=== PATIENT | female | born 1940 | race Caucasian/White ===

== ENCOUNTER 2017-09-09 12:03 | Inpatient (IN) | payer OTHER, BC ==
[~2017-09-09] VITALS: Ht 149.9 cm; Wt 90.6 kg
--- NOTE | ~2017-09-09 | HC ---
[facility] [place] [address] CONSULTATION Name: VERONICA HUYNH Room #: 515-P [facility] IN M.R.#: [id number] Admission: 09/09/17 Attend Phys: Duran Villanueva MD Discharge: Date of : 40 Report #: [id number] THIS REPORT FOR: //name// CC: Duran Martinez DATE OF SERVICE: 09/14/2017 HISTORY OF PRESENT ILLNESS: This is a 77-year-old female patient who was evaluated by me for the possibility of seizure. The patient is a poor historian. I reviewed the record, but she indicates that she had these episodes of syncope for a long period of time. She has a significant cardiac problem. This spelled a short-lived to come spontaneously and then becomes better within a few minutes. There has been some rolling of the eyes. When it happened, she was upright. REVIEW OF SYSTEMS: Very extensive in this patient. She has a history of shortness of breath. She has a history of pulmonary edema and ischemic cardiomyopathy. She has a significant coronary artery disease. She has renal insufficiency. She also had eye problems. This was her relevant 14-point review of system. PAST MEDICAL HISTORY: Positive for the syncope. FAMILY HISTORY: Positive for heart disease. SOCIAL HISTORY: She has a pretty supportive family, but they were not here. PHYSICAL EXAMINATION: The patient's examinations indicate that she is alert. She is responsive. She follows simple commands. Her speech is sometimes difficult to understand, but she said that is her baseline. She can tell me what month it is, but her memory and fund of knowledge is poor in general. Cranial nerve examination 2-12 looks mostly unremarkable. She moves all 4 extremities. There is no cerebellar sign. I could not look at the fundus. She is moderately built individual who does not have any dysmorphic features of eyes, ears and face. Her hearing looks adequate. Vision does look poor. Pulses are difficult to feel. She has no edema, cyanosis or jaundice. She has multiple cardiac problems. She has rhonchi on both sides. Blood pressure is 121/57, respiration is 12, pulse is 63, temperature is 97.8. She did not have any imaging study of the brain. IMPRESSION: This episode was most likely non-neurological. I do not believe that she had any seizure, but she has such an extensive disease that it will be desirable to make sure there is no neurological etiology for that. I will suggest an MRI and a carotid Doppler to complete the workup. She tells me, there is no contraindication for MRI. If confirmed with the family, we will [address] [address] CONSULTATION Name: VERONICA HUYNH Room #: 515-P [facility] IN M.R.#: [id number] Admission: 09/09/17 Attend Phys: Duran Villanueva MD Discharge: Date of : 40 Report #: [id number] schedule that. RECOMMENDATIONS: I will look at this MRI and until that shows some abnormality, we should concentrate on looking for any non-neurological cause for the patient's symptoms. Thank you very much for this referral and I discussed all of it with the patient and the family and she wants to follow this plan. <ELECTRONICALLY SIGNED> By: Jamil Diane MD 09/20/17 1347 1226 0246 Jamil Diane MD /nt
--- NOTE | ~2017-09-09 | HC ---
[facility] [place] [address] CONSULTATION Name: VERONICA HUYNH Room #: 515-P [facility] IN ..#: [id number] Admission: 09/09/17 Attend Phys: Duran Villanueva MD Discharge: 09/21/17 Date of : 40 Report #: [id number] THIS REPORT FOR: //name// CC: Duran Villanueva Kenya Clintonmary DATE OF SERVICE: 09/17/2017 ATTENDING PHYSICIAN: Duran Villanueva M.D. CUTTING AND CREASING PRESS OPERATOR: Sandor Murillo, PhD CLINICAL PRESENTATION: The patient is a 77-year-old female admitted to the [facility] rehabilitation unit for a comprehensive inpatient rehabilitation program to improve functional mobility and activities of daily living and self-care secondary to impairment from medical complexity and generalized debility. She had a non-ST elevated myocardial infarction. Her diagnostic assessment on admission also includes acute coronary syndrome, status post drug-eluting stent to the left circumflex with plan to continue aspirin and Plavix for at least 6 months, acute systolic congestive heart failure, cardiogenic pulmonary edema, ischemic cardiomyopathy, acute renal insufficiency superimposed on chronic kidney disease, triopathy, retinopathy with decreased vision, diabetic peripheral neuropathy, exogenous obesity and diabetes mellitus. A complete description of her medical condition and history can be found in her medical record. Neuropsychological consultation was requested to provide assistance in the assessment of cognitive and emotional status and to provide recommendations and services. Prior to this most recent event, she was living with the help of her daughter and granddaughter in her home. The patient had 3 children. One child about 3 weeks ago. The patient indicates continued to have feelings of depression regarding the loss of her child. 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 TECHNIQUES UTILIZED: Clinical interview, review of medical records, staff consultation and behavioral observation, mini mental status exam 2 standard version, and calibrated ideational fluency assessment (category fluency) and a brief abstract reasoning test. EXAMINATION FINDINGS: The patient was alert and cooperative with the assessment. However, her eyes remained closed throughout the evaluation. The patient does report having had macular degeneration and severe visual deficits. She reports subjective feelings of anxiety and depression. Appetite is poor. She also acknowledges difficulty with word finding. Although her eyes were closed, she was alert and cooperative with the assessment. Depression over the [facility] [address] [place] [address] CONSULTATION Name: VERONICA HUYNH Room #: 515-P [facility] IN [facility].#: [id number] Admission: 09/09/17 Attend Phys: Duran Villanueva MD Discharge: 09/21/17 Date of : 40 Report #: [id number] loss of her daughter is also reported. Her performance on the MMSE 2 brief version is within normal limits with a raw score of 14-16. She was 3/3 for initial registration, 5/5 for orientation to time and 5/[address] She was 1/3 correct for 3 items after a brief time delay and distraction. Performance on the brief abstract reasoning test was a score of 3/8 which suggests moderate to severe deficits. Category fluency was at the 8th percentile with a T score of 36 and percentile rank of 8. The MMSE 2 brief version was within normal limits with a raw score of 14-16. The patient was 1/3 for immediate recall of 3 items after a brief time delay and distraction. 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 Adjustment disorder with anxiety and depressed mood. RECOMMENDATIONS: Treatment program for depression is indicated that includes the use of antidepressant medication. Verbal praise and complements along with specific instructions will also help in general participation. Strategies to assist in compensation for visually mediated deficits are needed. Her discharge destination will be more effective in degree of similarity to prior living arrangement. Thank you very much for allowing me to provide the consultation on this patient. <ELECTRONICALLY SIGNED> By: Sandor Murillo, PhD 09/23/17 1345 1504 2245 Sandor Murillo, PhD /nt
--- NOTE | ~2017-09-09 | H ---
[facility] [place] [address] HISTORY AND PHYSICAL Name: VERONICA HUYNH Room #: 515-P ADM IN M.R.#: [id number] Admission: 09/09/17 Attend Phys: Duran Villanueva MD Discharge: Date of : 40 Report #: [id number] THIS REPORT FOR: //name// CC: Duran Martinez DATE OF SERVICE: 09/09/2017 HISTORY OF PRESENT ILLNESS: The patient is a 77-year-old female who was originally admitted to [facility] with shortness of breath. She underwent diagnostic evaluation and was noted to have an acute coronary syndrome and ruled in for a non-ST elevation HI. She was diagnosed with cardiogenic pulmonary edema. She was noted to have ischemic cardiomyopathy, acute systolic congestive heart failure. She underwent cardiac catheterization showing diffuse distal disease, LAD and PDA. She underwent stenting of the left circumflex with a plan to continue aspirin and Plavix for at least 6 months. She was monitored regarding her renal insufficiency. She was noted to have generalized weakness and debilitation and has been admitted for acute in-hospital inpatient rehabilitation. PAST MEDICAL HISTORY: Includes COPD, diabetes mellitus, hypertension, hyperlipidemia, obesity. 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 ALLERGIES: LISINOPRIL. FAMILY HISTORY: Heart disease, COPD, diabetes mellitus and hypertension. MEDICATIONS: Please see the full medication listing. Each of these was individually reconciled and includes vitamins herbals and supplements. SOCIAL HISTORY: Lives in a house with her daughter and granddaughter. She is rarely alone for more than 30 minutes at a time per history. She utilized a walking stick with her visual difficulties and also had a walker that she use. Daughter is noted to be durable power of employee benefits attorney in the family or bath need assistance with bathing three times per week. REVIEW OF SYSTEMS: No current complaints of chest pain, shortness of breath or abdominal discomfort. PHYSICAL EXAMINATION: GENERAL: A 77-year-old obese female in no obvious distress. The patient is pleasant, alert, appears to be a reasonable historian. She was following basic 1 step commands. VITAL SIGNS: Temperature 36.8, pulse 60, respirations 20, blood pressure 108/52. [address] [address] HISTORY AND PHYSICAL Name: VERONICA HUYNH Room #: 515-P [facility] IN ..#: [id number] Admission: 09/09/17 Attend Phys: Duran Villanueva MD Discharge: Date of : 40 Report #: [id number] HEENT: Appeared to be benign. CHEST: Sounded clear to auscultation. CARDIAC: Regular rate and rhythm. ABDOMEN: Obese, bowel sounds positive, nontender. EXTREMITIES: Functional range of motion of both upper extremities with strength grade 4-/5. She has the significant decreased vision as noted. In the lower extremities, she has decreased distal sensation and a stocking distribution with strength grade 3+ to 4-/5. DTRs are trace to 1. She is needing assistance with basic functional mobility, short distances for walker ambulation. She has been max assist to ambulate 20 feet with transfers, mod assist. Lower body dressing has been max assist prior to admission. ASSESSMENT: A 77-year-old female with the following problem list: 1. Medical complexity with generalized debilitation. 2. Non-ST elevation myocardial infarction. 3. Acute coronary syndrome, now status post drug-eluting stent to the left circumflex with plan to continue aspirin and Plavix for at least 6 months. 4. Acute systolic congestive heart failure. 5. Cardiogenic pulmonary edema. 6. Ischemic cardiomyopathy. 7. Acute renal insufficiency superimposed on chronic kidney disease. 8. Triopathy. 9. Retinopathy with decreased vision. 10. Diabetic peripheral neuropathy. 11. Exogenous obesity. 12. Obesity. 13. Diabetes mellitus. PLAN: The patient is admitted for acute in-hospital inpatient rehabilitation. From a postadmission physician evaluation perspective, there are no relevant changes since the preadmission screening. Please see the above review of prior and current medical and functional conditions and comorbidities. Please see the patient's previous and current functional status. As far as risk of complication, she does have multiple medical comorbidities as noted above. Initial plan of care involves the interdisciplinary acute inpatient rehabilitation program with goal of maximizing the patient's functional independence, so she can hopefully return back to her prior living situation. Measurable functional goals would be for her to improve to the point where she can be using her walking stick or her walker as she was doing before and able to do most of her basic ADLs. Prognosis is reasonably good with estimated length of stay probably at least 5-7 days and likely longer if needed. Potential barriers would include her multiple medical comorbidities and decreased functional status. The patient meets diagnostic criteria for an acute in-hospital inpatient rehabilitation stay. She meets medical necessity criteria with the multiple medical comorbidities as noted above. We will have the [facility] [address] [place] [address] HISTORY AND PHYSICAL Name: VERONICA HUYNH Room #: 515-P ADM IN M.R.#: [id number] Admission: 09/09/17 Attend Phys: Duran Villanueva MD Discharge: Date of : 40 Report #: [id number] client support consultant physicians continue to follow while she is on the rehab carter. She does have the tolerance for an acute rehab stay and has appropriate discharge goals back to the home setting. <ELECTRONICALLY SIGNED> By: Duran Villanueva MD 09/12/17 1414 1453 1514 Duran Villanueva MD /[facility]
--- NOTE | ~2017-09-09 | EEG ---
[facility] [place] [address] ELECTROENCEPHALOGRAM Name: VERONICA HUYNH Room #: 515-P ADM IN M.R.#: [id number] Admission: 09/09/17 Attend Phys: Duran Villanueva MD Discharge: Date of : 40 Report #: [id number] THIS REPORT FOR: //name// CC: Duran Martinez DATE OF SERVICE: 09/12/2017 INDICATIONS: This patient is being evaluated for an episode of syncope. EEG is being done to further evaluate that. DESCRIPTION: EEG was done by placing the electrodes by standard 10-20 system of electrode placement. Both referential and sequential montages were used for recording. Background activity in this patient's EEG is about 9 Hz and 30 microvolts. It is a symmetrical activity. The patient went to sleep that is associated with bilaterally symmetrical sleep spindle and vertex sharp waves. Photic stimulation is unremarkable. Throughout the record, no active epileptiform activity was noticed. IMPRESSION: This patient's EEG is intermixed with some theta range slowing. Otherwise, it does not demonstrate any active epileptiform activity. Thank you very much for this referral. <ELECTRONICALLY SIGNED> By: Jamil Diane MD 09/20/17 1349 1722 1734 Jamil Diane MD /nt
--- NOTE | ~2017-09-09 | PLAN ---
[facility] [place] [address] REHAB UNIT PLAN OF CARE Name: VERONICA HUYNH Room #: 515-P ADM IN .R.#: [id number] Admission: 09/09/17 Attend Phys: Duran Villanueva MD Discharge: Date of : 40 Report #: [id number] THIS REPORT FOR: //name// CC: Duran Martinez DATE OF SERVICE: 09/11/2017 The patient is seen back today in followup. She is in no distress. Last recorded temperature is 97.7, pulse 58, respirations 20, blood pressure 122/53. The patient is alert. Transfers are mod assist. Gait 20 feet front-wheeled walker, min assist. Occupational therapy, lower body dressing is max assist. In speech therapy, the patient has mild to moderate comprehensive deficits. ASSESSMENT: 1. Medical complex with generalized debilitation. 2. Non-ST elevation myocardial infarction. 3. Acute coronary syndrome, status post drug-eluting stent to the left circumflex with plan to continue aspirin and Plavix. 4. Acute systolic congestive heart failure. 5. Cardiogenic pulmonary edema. 6. Ischemic cardiomyopathy. 7. Acute renal insufficiency superimposed on chronic kidney disease. 8. Triopathy 9. Retinopathy with decreased vision. 10. Diabetic peripheral neuropathy. 11. Exogenous obesity. 12. Diabetes mellitus. PLAN: The overall plan of care is based on the preadmission screen, post-admission physician evaluation and information garnered from therapy assessments. 1. Estimated length of stay is probably at least a week, likely longer as warranted. 2. Medical prognosis is reasonably good. 3. Anticipated interventions includes the interdisciplinary acute inpatient rehabilitation program with the goal of maximizing her functional independence, so the patient returns back to her home setting. We will have the interdisciplinary acute rehab team involved. PT, OT, speech rehab nursing assisting regarding medication management, skin care prophylaxis, bowel and bladder issues and nursing education. The vocational rehab consultant physicians will continue to follow. 4. Anticipated functional outcomes would be for the patient to achieve a status where she is up with her walking stick or using her walker for mobility, ADLs as before. 5. Discharge destination is back home with daughter and granddaughter. [address] [address] REHAB UNIT PLAN OF CARE Name: VERONICA HUYNH Room #: 515-P ADM IN .R.#: [id number] Admission: 09/09/17 Attend Phys: Duran Villanueva MD Discharge: Date of : 40 Report #: [id number] 6. Expected therapy by discipline includes PT, OT and speech 1 hour per day each five days a week throughout the duration of the acute inpatient rehabilitation stay. We may be able to taper off that speech therapy in favor of more PT and OT depending upon how she does. <ELECTRONICALLY SIGNED> By: Duran Villanueva MD 09/12/17 1414 0915 2333 Duran Villanueva MD /PMT
[2017-09-09 12:00] VITALS: BP 108/52
[~2017-09-09 12:03] MED LIST: ACETAMINOPHEN325 M1 PO; ADVAIR HFA 230M12 GM INH; ALPHAGAN P15 ML OPHTHALMIC; ASPIRIN325 PO; ATORVASTATIN CA40 MG PO; ATROVENT HFA14 GM INH; CARVEDILOL3.125 MG PO; CEFUROXIME250 MG PO; CLOPIDOGREL75 MG PO; COSOPT OCUMETER10 M1 OPHTHALMIC; HUMALOG KW200 UNIT/1 SUBQ; HUMALOG100 UNIT/1 SUBQ; LANTUS SOL100 UNIT/1 SUBQ; MUCINEX600 MG PO; NEURONTIN 300300 M1 PO; PREVACID30 MG PO; SYMBICORT160 MCG/4. INH; VENTOLIN HFA 1818 GM INH
[2017-09-10 06:51] LABS: ALBUMIN 2.2 g/dL (3.4-5.0); CALCIUM 8.4 mg/dL (8.5-10.1); CREATININE 1.4 mg/dL (0.6-1.0); PHOSPHORUS 3.7 mg/dL (2.5-4.9); POTASSIUM 4.3 mmol/L (3.5-5.1)
[2017-09-10 08:30] VITALS: BP 125/53
[2017-09-10 20:00] VITALS: BP 122/53
[2017-09-11 03:58] LABS: HEMATOCRIT 29.8 % (37.0-47.0); HEMOGLOBIN 9.4 gm/dL (12.0-15.0); MCH 26.7 pg (26.0-34.0); MCHC 31.7 g/dL (28.0-37.0); MCV 84.2 fL (80.0-100.0); RBC 3.53 mil/uL (4.20-5.00); RDW 15.7 % (10.5-14.5)
[2017-09-11 04:11] LABS: ALBUMIN 2.2 g/dL (3.4-5.0); CALCIUM 8.2 mg/dL (8.5-10.1); CREATININE 1.2 mg/dL (0.6-1.0); POTASSIUM 4.5 mmol/L (3.5-5.1)
[2017-09-11 13:45] LABS: % SATURATION 13 % (20-39); IRON 33 ug/dL (50-170); TIBC 252 ug/dL (250-450); UIBC 219 ug/dL
[2017-09-11 14:26] LABS: FERRITIN 112 ng/mL (8-252)
[2017-09-11 15:19] VITALS: BP 137/63
[2017-09-12 07:16] VITALS: BP 138/54
[2017-09-12 07:18] LABS: ALBUMIN 2.3 g/dL (3.4-5.0); CREATININE 1.2 mg/dL (0.6-1.0); PHOSPHORUS 3.6 mg/dL (2.5-4.9); POTASSIUM 4.6 mmol/L (3.5-5.1)
[2017-09-12 19:53] VITALS: BP 117/56
[2017-09-13 07:55] VITALS: BP 136/65
[2017-09-13 08:00] VITALS: BP 136/65
[2017-09-13 20:12] VITALS: BP 133/61
[2017-09-14 06:14] LABS: ABSOLUTE NEUTROPHILS 5.7 thou/uL (1.4-8.2); BASOPHILS 0.7 % (0.0-2.0); EOSINOPHILS 3.8 % (0.0-3.0); HEMATOCRIT 28.5 % (37.0-47.0); HEMOGLOBIN 9.2 gm/dL (12.0-15.0); LYMPHOCYTES 20.4 % (24.0-44.0); MANUAL DIFF NO; MCH 27.5 pg (26.0-34.0); MCHC 32.4 g/dL (28.0-37.0); MCV 84.9 fL (80.0-100.0); MONOCYTES 7.2 % (1.0-8.0); PLATELET COUNT 184 thou/uL (150-400); POLYS 67.9 % (36.0-66.0); RBC 3.35 mil/uL (4.20-5.00); RDW 15.7 % (10.5-14.5); WBC 8.4 thou/uL (4.0-11.0)
[2017-09-14 06:32] LABS: ALBUMIN 2.4 g/dL (3.4-5.0); CALCIUM 8.1 mg/dL (8.5-10.1); CREATININE 1.3 mg/dL (0.6-1.0); MAGNESIUM 2.1 mg/dL (1.8-2.4); PHOSPHORUS 3.5 mg/dL (2.5-4.9); POTASSIUM 4.6 mmol/L (3.5-5.1)
[2017-09-14 08:06] VITALS: BP 121/57
[2017-09-14 20:34] VITALS: BP 127/49
[2017-09-15 07:36] VITALS: BP 105/50
[2017-09-15 09:07] LABS: HEMATOCRIT 29.4 % (37.0-47.0); HEMOGLOBIN 9.5 gm/dL (12.0-15.0); MCH 27.2 pg (26.0-34.0); MCHC 32.3 g/dL (28.0-37.0); MCV 83.9 fL (80.0-100.0); RBC 3.5 mil/uL (4.20-5.00); RDW 15.6 % (10.5-14.5); WBC 11.4 thou/uL (4.0-11.0)
[2017-09-15 09:22] LABS: CALCIUM 8.4 mg/dL (8.5-10.1); CREATININE 1.3 mg/dL (0.6-1.0); MAGNESIUM 2.4 mg/dL (1.8-2.4); POTASSIUM 5.3 mmol/L (3.5-5.1)
[2017-09-15 20:40] VITALS: BP 115/53
[2017-09-16 08:24] VITALS: BP 99/44
[2017-09-16 14:11] LABS: HEMATOCRIT 28.7 % (37.0-47.0); HEMOGLOBIN 9.2 gm/dL (12.0-15.0); MCHC 32.2 g/dL (28.0-37.0); MCV 83.7 fL (80.0-100.0); RBC 3.42 mil/uL (4.20-5.00); RDW 15.7 % (10.5-14.5); WBC 11.4 thou/uL (4.0-11.0)
[2017-09-16 14:24] LABS: ALBUMIN 2.5 g/dL (3.4-5.0); CALCIUM 8.4 mg/dL (8.5-10.1); CREATININE 1.5 mg/dL (0.6-1.0); MAGNESIUM 2.4 mg/dL (1.8-2.4); POTASSIUM 5.4 mmol/L (3.5-5.1); TOTAL BILIRUBIN 0.4 mg/dL (<0.1-1.0); TOTAL PROTEIN 6.6 g/dL (6.4-8.2)
[2017-09-16 20:12] VITALS: BP 131/53
[2017-09-17 06:54] LABS: ALBUMIN 2.4 g/dL (3.4-5.0); CALCIUM 8.3 mg/dL (8.5-10.1); CREATININE 1.7 mg/dL (0.6-1.0); POTASSIUM 5.4 mmol/L (3.5-5.1)
[2017-09-17 08:00] VITALS: BP 124/48
[2017-09-17 20:04] VITALS: BP 115/45
[2017-09-18 05:34] LABS: ALBUMIN 2.2 g/dL (3.4-5.0); CALCIUM 8.3 mg/dL (8.5-10.1); CREATININE 1.6 mg/dL (0.6-1.0); PHOSPHORUS 4.3 mg/dL (2.5-4.9); POTASSIUM 4.9 mmol/L (3.5-5.1)
[2017-09-18 08:45] VITALS: BP 132/45
[2017-09-18 21:30] VITALS: BP 114/44
[2017-09-19 08:23] VITALS: BP 99/41
[2017-09-19 20:05] VITALS: BP 127/43
[2017-09-20 07:07] LABS: ALBUMIN 2.3 g/dL (3.4-5.0); CALCIUM 8.5 mg/dL (8.5-10.1); CREATININE 1.2 mg/dL (0.6-1.0); MAGNESIUM 2.3 mg/dL (1.8-2.4); PHOSPHORUS 4.7 mg/dL (2.5-4.9); POTASSIUM 4.4 mmol/L (3.5-5.1)
[2017-09-20 07:37] LABS: ABSOLUTE NEUTROPHILS 3.5 thou/uL (1.4-8.2); BASOPHILS 0.7 % (0.0-2.0); EOSINOPHILS 6.8 % (0.0-3.0); HEMATOCRIT 23.7 % (37.0-47.0); HEMOGLOBIN 7.7 gm/dL (12.0-15.0); LYMPHOCYTES 14.5 % (24.0-44.0); MCH 27.5 pg (26.0-34.0); MCHC 32.3 g/dL (28.0-37.0); MCV 85.3 fL (80.0-100.0); MONOCYTES 8.8 % (1.0-8.0); PLATELET COUNT 116 thou/uL (150-400); POLYS 69.2 % (36.0-66.0); RBC 2.78 mil/uL (4.20-5.00); RDW 15.8 % (10.5-14.5); WBC 5.1 thou/uL (4.0-11.0)
[2017-09-20 07:39] LABS: MANUAL DIFF NO
[2017-09-20 07:46] VITALS: BP 99/40
[2017-09-20 20:05] VITALS: BP 127/50
[2017-09-21 08:10] VITALS: BP 108/46
[2017-09-21] MEDS ORDERED: MUCINEX600 MG PO (08:17)
[2017-09-21] MEDS ORDERED: VITAMIN D1000 UNI1 PO (08:17)
[2017-09-21] MEDS ORDERED: HUMALOG100 UNIT/1 SUBQ (08:17)
[2017-09-21] MEDS ORDERED: ATORVASTATIN CA40 MG PO (08:17)
[2017-09-21] MEDS ORDERED: SYMBICORT160 MCG/4. INH (08:17)
[2017-09-21] MEDS ORDERED: DEMADEX20 MG PO (08:17)
[2017-09-21] MEDS ORDERED: IRON325 PO (08:17)
[2017-09-21] MEDS ORDERED: PREVACID30 MG PO (08:17)
[2017-09-21] MEDS ORDERED: CARVEDILOL3.125 MG PO (08:17)
[2017-09-21] MEDS ORDERED: COLACE100 MG PO (08:17)
[2017-09-21] MEDS ORDERED: VENTOLIN HFA 1818 GM INH (08:17)
[2017-09-21] MEDS ORDERED: NEURONTIN 300300 M1 PO (08:17)
[2017-09-21] MEDS ORDERED: ASPIRIN325 PO (08:17)
[2017-09-21] MEDS ORDERED: LANTUS SOL100 UNIT/1 SUBQ (08:17)
[2017-09-21] MEDS ORDERED: CLOPIDOGREL75 MG PO (08:17)
[2017-09-21] MEDS ORDERED: ADVAIR HFA 230M12 GM INH (08:17)
[2017-09-21 09:02] VITALS: BP 127/50
[2017-09-21 12:11] VITALS: BP 127/50
[2017-09-21 12:17] VITALS: BP 127/50
[2017-09-21 12:51] VITALS: BP 127/50
[2017-09-21 13:57] VITALS: BP 127/50
== END 2017-09-21 14:00 | disposition home health service (06) | DRG 947 ==
LOC: ENTRNSPT 09-21 13:43 → EDTRNSPTSTS 09-21 13:47
PROVIDERS: Hospitalist; Internal Medicine; Internal Medicine Nephrology; Nurse Practitioner; Physical Medicine & Rehabilitation
DX: R53.81 Other malaise (principal); I21.4 Non-ST elevation (NSTEMI) myocardial infarction; I50.43 Acute on chronic combined systolic (congestive) and diastolic (congestive) heart failure; I24.9 Acute ischemic heart disease, unspecified; Z68.41 Body mass index [BMI] 40.0-44.9, adult; N17.9 Acute kidney failure, unspecified; E44.0 Moderate protein-calorie malnutrition; I13.0 Hypertensive heart and chronic kidney disease with heart failure and stage 1 through stage 4 chronic kidney disease, or unspecified chronic kidney disease; I25.5 Ischemic cardiomyopathy; N18.9 Chronic kidney disease, unspecified; E11.42 Type 2 diabetes mellitus with diabetic polyneuropathy; E66.09 Other obesity due to excess calories; R41.9 Unspecified symptoms and signs involving cognitive functions and awareness; F41.9 Anxiety disorder, unspecified; F32.9 Major depressive disorder, single episode, unspecified; J44.9 Chronic obstructive pulmonary disease, unspecified; E78.5 Hyperlipidemia, unspecified; E87.6 Hypokalemia; I95.9 Hypotension, unspecified; E11.319 Type 2 diabetes mellitus with unspecified diabetic retinopathy without macular edema; E78.00 Pure hypercholesterolemia, unspecified; Z79.82 Long term (current) use of aspirin; Z79.899 Other long term (current) drug therapy; Z95.5 Presence of coronary angioplasty implant and graft; Z82.49 Family history of ischemic heart disease and other diseases of the circulatory system; Z88.8 Allergy status to other drugs, medicaments and biological substances; Z86.73 Personal history of transient ischemic attack (TIA), and cerebral infarction without residual deficits
CPT/HCPCS: 10112

== ENCOUNTER 2018-03-28 11:14 | Inpatient (IN) | payer OTHER, BC ==
[~2018-03-28] VITALS: Ht 149.9 cm; Wt 83.0 kg
--- NOTE | ~2018-03-28 | EKG ---
[address] [place] [address] ELECTROCARDIOGRAM REPORT Name: VERONICA HUYNH Room #: 211- ADM IN M.R.#: [id number] Admission: 03/28/18 Attend Phys: Abran Radford Discharge: Date of : 40 Report #: [id number] THIS REPORT FOR: //name// [facility] Test Date: 2018-03-29 Test Time: 09:37:11 Pat Name: VERONICA HUYNH Department: Room: 211 P Gender: F Patient Advocate: NATE : 1940 Requested By: Verna Valdez Order Number: [id number] MD: Calderon Jarvis Measurements Intervals [place] Rate: 76 P: 54 CT: 211 QRS: -27 QRSD: 143 T: 142 QT: 419 QTc: 472 Interpretive Statements Sinus rhythm Left bundle branch block Compared to ECG 03/28/2018 11:17:53 No significant changes Electronically Signed On 03-30-2018 7:24:54 CDT by Calderon Jarvis [email or web address] <ELECTRONICALLY SIGNED> By: Calderon Jarvis MD, [facility] 03/30/18 0724 6 6 Calderon Jarvis MD, [facility] /EPI
--- NOTE | ~2018-03-28 | EKG ---
[place] [address] [facility] [place] [address] ELECTROCARDIOGRAM REPORT Name: VERONICA HUYNH Room #: 211-P ADM IN M.R.#: [id number] Admission: 03/28/18 Attend Phys: Abran Radford Discharge: Date of : 40 Report #: [id number] THIS REPORT FOR: //name// [facility] ED Test Date: 2018-03-28 Test Time: 11:17:53 Pat Name: VERONICA HUYNH Department: Room: Gender: F Screener Perfumer: cweiash : 1940 Requested By: Deidra Hayes Order Number: [id number] MD: Calderon Jarvis Measurements Intervals [place] Rate: 94 P: 116 [place]: 211 QRS: -26 QRSD: 133 T: 152 QT: 368 QTc: 461 Interpretive Statements Sinus rhythm Borderline prolonged [place] interval Left bundle branch block Compared to ECG 09/08/2017 06:39:36 No significant changes Electronically Signed On 03-29-2018 7:49:12 CDT by Calderon Jarvis [email or web address] <ELECTRONICALLY SIGNED> By: Calderon Jarvis MD, [facility] 03/29/18 0749 1117 1117 Calderon Jarvis MD, [facility] /EPI
--- NOTE | ~2018-03-28 | HC ---
[facility] [place] [address] CONSULTATION Name: HUYNHVERONICA Carmel Room #: 211-P [facility] IN M.R.#: [id number] Admission: 03/28/18 Attend Phys: Abran Radford Discharge: 03/30/18 Date of : 40 Report #: [id number] THIS REPORT FOR: //name// CC: Abran Martinez REASON FOR CONSULTATION: Elevated creatinine. REASON FOR PRESENTATION: Nausea, vomiting and diarrhea. HISTORY OF PRESENT ILLNESS: This 78-year-old, who presented to the Emergency Room, complaining of worsening nausea, and vomiting. She was recently discharged from [facility] to her home. She was there for some time after she stayed in [facility] back in the early part of January. She is known to have coronary artery disease. She had cardiac catheterization in 2016 and a drug-eluting stent was placed in the proximal left circumflex artery. Ejection fraction was reported to be 30% at that time. Of notice, is the fact that she recently had a cardiac catheterization at . This was back in 01/2018. She had 2 stents placed. She also was found to have cardiomyopathy and a LifeVest was placed for the patient. Creatinine during her hospital stay at was at 1.7. On presentation to the Emergency Room here, she was found to have an elevated creatinine at 2.5. I am being consulted to manage her acute kidney injury, related issues. PAST MEDICAL HISTORY: Extensive and includes the followin. Coronary artery disease, status post cardiac catheterization in 2016, status post cardiac catheterization in 01/2018. 2. COPD. 3. Diabetes mellitus. 4. Hypertension. 5. Vision loss with legal blindness. 6. Cardiomyopathy with ejection fractions of around 30%. 7. Post multiple coronary stents. SOCIAL HISTORY: She lives with her daughter, recently discharged from [facility]. ALLERGIES: LISINOPRIL, unclear what happened when she took it. MEDICATIONS: Currently listed as Plavix, atorvastatin, metoprolol, losartan, aspirin, torsemide, lispro insulin. REVIEW OF SYSTEMS: GENERAL: Significant for weakness. CARDIOVASCULAR: No shortness of breath, no chest pain. PULMONARY: No cough or hemoptysis. GASTROINTESTINAL: Significant for nausea, vomiting, diarrhea. [facility] [address] [place] [address] CONSULTATION Name: VERONICA HUYNH Room #: 211-P [facility] IN [facility].#: [id number] Admission: 03/28/18 Attend Phys: Abran Radford Discharge: 03/30/18 Date of : 40 Report #: [id number] GENITOURINARY: No frequency, no urgency. FAMILY HISTORY: Very significant hypertension and diabetes mellitus in the family. PHYSICAL EXAMINATION: GENERAL: She is alert, oriented. VITAL SIGNS: Blood pressure was 116/52, pulse rate is 80. HEAD AND NECK: No jugular venous distention. CHEST: Decreased air entry bilaterally. CARDIOVASCULAR: No rub detected. ABDOMEN: Soft, nontender. LOWER EXTREMITIES: Essentially no edema. LABORATORY VALUES: Reviewed. White blood cell count 10.4. BUN is 47, creatinine is 2.5. Troponin was 11.3. Nitrite is positive in the urine. CT reviewed and there was some thickening with tiny pocket of gas within the nondependent portion of the urinary bladder. There was some diverticulosis with no evidence of diverticulitis. ASSESSMENT, IMPRESSION AND PLAN: 1. Acute kidney injury. 2. Chronic kidney disease. 3. Recent cardiac catheterization at . 4. Elevated troponin. 5. Extensive coronary artery disease. 6. Cardiomyopathy. 7. Recent urinary tract infection. 8. Cardiorenal syndrome. 9. The patient is exhibiting a cardiorenal syndrome with fluctuating creatinine. Her baseline is around 1.5. From the renal perspective, I would hold the Demadex for now. 10. Send urine culture. 11. Watch blood pressure. 12. Try to augment her heart condition. 13. Investigate for the source of her hypotension with appropriate septic workup, blood cultures given her recent hospitalization, ruling out Clostridium difficile. 14. Her blood pressure seems to have picked up. She does not have any edema on my examination and if she continues to have poor p.o. intake, we will start gentle IV fluid. <ELECTRONICALLY SIGNED> By: Oleg Burrell MD 04/02/18 0945 [id number] Oleg Burrell MD /nt
[~2018-03-28 11:14] MED LIST changes: +COLACE100 MG PO; +DEMADEX20 MG PO; +IRON325 PO; +VITAMIN D1000 UNI1 PO
[2018-03-28 11:15] VITALS: BP 102/43
[2018-03-28] MEDS ORDERED: ASPIR 8181 MG PO (11:40)
[2018-03-28] MEDS ORDERED: PREDNISOLONE SO10 ML OPHTHALMIC (11:40)
[2018-03-28] MEDS ORDERED: COZAAR 25 MG TA25 M2 PO (11:41)
[2018-03-28] MEDS ORDERED: IRON325 PO (11:42)
[2018-03-28] MEDS ORDERED: PROMOD946 ML PO (11:43)
[2018-03-28] MEDS ORDERED: UNICOMPLEX M TA1 TA1 PO (11:44)
[2018-03-28] MEDS ORDERED: VITAMINC500 PO (11:46)
[2018-03-28] MEDS ORDERED: LOPRESSOR25 PO (11:47)
[2018-03-28 11:49] LABS: ABSOLUTE NEUTROPHILS 9.2 thou/uL (1.4-8.2); BASOPHILS 0.3 % (0.0-2.0); EOSINOPHILS 0.3 % (0.0-3.0); HEMATOCRIT 36.9 % (37.0-47.0); HEMOGLOBIN 12.1 gm/dL (12.0-15.0); LYMPHOCYTES 5.3 % (24.0-44.0); MCH 27.8 pg (26.0-34.0); MCHC 32.7 g/dL (28.0-37.0); MCV 85.1 fL (80.0-100.0); MONOCYTES 5.5 % (1.0-8.0); PLATELET COUNT 158 thou/uL (150-400); POLYS 88.6 % (36.0-66.0); RBC 4.34 mil/uL (4.20-5.00); RDW 14.7 % (10.5-14.5); WBC 10.4 thou/uL (4.0-11.0)
[2018-03-28 11:57] LABS: CALCIUM 9.2 mg/dL (8.5-10.1); CREATININE 1.9 mg/dL (0.6-1.0); POTASSIUM 4.2 mmol/L (3.5-5.1)
[2018-03-28 12:05] LABS: ALBUMIN 3.1 g/dL (3.4-5.0); DIRECT BILIRUBIN 0.2 mg/dL (<0.1-0.3); TOTAL BILIRUBIN 0.6 mg/dL (<0.1-1.0); TOTAL PROTEIN 7.6 g/dL (6.4-8.2)
[2018-03-28 12:08] LABS: TROPONIN-I 1.36 ng/mL (<0.06)
[2018-03-28 12:26] LABS: INR 1.1; PROTIME 11.2 Seconds (9.3-11.4)
[2018-03-28 13:47] VITALS: BP 100/51
[2018-03-28 15:28] VITALS: BP 88/45
[2018-03-28 19:48] VITALS: BP 86/53
[2018-03-29 00:10] VITALS: BP 94/50
[2018-03-29 03:50] LABS: CALCIUM 7.9 mg/dL (8.5-10.1); CREATININE 2.5 mg/dL (0.6-1.0); POTASSIUM 4.1 mmol/L (3.5-5.1)
[2018-03-29 03:58] VITALS: BP 112/53
[2018-03-29 03:59] LABS: ALBUMIN 2.5 g/dL (3.4-5.0); PHOSPHORUS 3.8 mg/dL (2.5-4.9)
[2018-03-29 04:01] LABS: TROPONIN-I 11.36 ng/mL (<0.06)
[2018-03-29 06:56] LABS: URINE BILIRUBIN NEGATIVE (Negative); URINE BLOOD 1+ (Negative); URINE COLOR YELLOW; URINE GLUCOSE-RANDOM* NEGATIVE (Negative); URINE KETONES NEGATIVE (Negative); URINE LEUKOCYTES 3+ (Negative); URINE NITRITE POSITIVE (Negative); URINE PROTEIN (DIPSTICK) NEGATIVE (Negative); URINE UROBILINOGEN 0.2 E.U./dl (0.2-1.0)
[2018-03-29 06:58] LABS: URINE CLARITY CLOUDY
[2018-03-29 07:07] LABS: CASTS None Seen /LPF (None Seen); MUCUS 0-3 Light strn/LPF (None Seen); SQUAMOUS >10 Many /LPF (0-3)
[2018-03-29 07:08] VITALS: BP 109/54
[2018-03-29 07:08] LABS: BACTERIA >30 Many /HPF (None Seen); CRYSTALS None Seen /LPF (None Seen); URINE RBC 0-2 Rare /HPF (0-2); URINE WBC >25 Many /HPF (0-5)
[2018-03-29 10:58] VITALS: BP 108/56
[2018-03-29 15:13] VITALS: BP 116/52
[2018-03-29 19:09] VITALS: BP 120/54
[2018-03-30 03:48] VITALS: BP 121/55
[2018-03-30 05:50] LABS: ALBUMIN 2.4 g/dL (3.4-5.0); CALCIUM 8.6 mg/dL (8.5-10.1); PHOSPHORUS 3.3 mg/dL (2.5-4.9)
[2018-03-30 05:57] LABS: CREATININE 1.5 mg/dL (0.6-1.0)
[2018-03-30 06:01] LABS: TROPONIN-I 4.02 ng/mL (<0.06)
[2018-03-30 07:30] VITALS: BP 128/68
[2018-03-30] MEDS ORDERED: DEMADEX20 MG PO (09:33)
[2018-03-30 11:36] VITALS: BP 140/69
[2018-03-30 15:44] VITALS: BP 123/64
[2018-03-30] MEDS ORDERED: CEFUROXIME250 MG PO (16:04)
[2018-03-30 16:15] VITALS: BP 140/69
== END 2018-03-30 20:00 | disposition home health service (06) | DRG 280 ==
LOC: ER 11:14 → EROBS 12:23 → 2N 12:23
PROVIDERS: Emergency Medicine; Hospitalist
DX: I21.4 Non-ST elevation (NSTEMI) myocardial infarction (principal); E43 Unspecified severe protein-calorie malnutrition; N39.0 Urinary tract infection, site not specified; N17.9 Acute kidney failure, unspecified; I50.20 Unspecified systolic (congestive) heart failure; I13.0 Hypertensive heart and chronic kidney disease with heart failure and stage 1 through stage 4 chronic kidney disease, or unspecified chronic kidney disease; J44.9 Chronic obstructive pulmonary disease, unspecified; E78.5 Hyperlipidemia, unspecified; E66.9 Obesity, unspecified; H54.8 Legal blindness, as defined in USA; E11.22 Type 2 diabetes mellitus with diabetic chronic kidney disease; I25.10 Atherosclerotic heart disease of native coronary artery without angina pectoris; N18.9 Chronic kidney disease, unspecified; I25.5 Ischemic cardiomyopathy; I95.9 Hypotension, unspecified; E86.9 Volume depletion, unspecified; Z79.4 Long term (current) use of insulin; Z68.36 Body mass index [BMI] 36.0-36.9, adult; Z88.8 Allergy status to other drugs, medicaments and biological substances; Z83.3 Family history of diabetes mellitus; Z83.6 Family history of other diseases of the respiratory system; Z95.5 Presence of coronary angioplasty implant and graft; Z82.49 Family history of ischemic heart disease and other diseases of the circulatory system; Z79.82 Long term (current) use of aspirin; Z79.899 Other long term (current) drug therapy
CPT/HCPCS: 10081

== ENCOUNTER 2018-09-27 16:00 | Inpatient (IN) | payer OTHER, BC ==
[~2018-09-27] VITALS: Ht 121.9 cm; Wt 88.0 kg
--- NOTE | ~2018-09-27 | HC ---
[facility] [place] [address] CONSULTATION Name: VERONICA HUYNH Room #: 462-P ADM IN M.R.#: [id number] Admission: 09/27/18 Attend Phys: Ranjan Kim MD Discharge: Date of : 40 Report #: [id number] THIS REPORT FOR: //name// CC: Ranjan CORDOVA DATE OF SERVICE: 09/28/2018 CHIEF COMPLAINT: Ulceration to the right heel and medial ankle. HISTORY OF PRESENT ILLNESS: This is a 78-year-old female patient who was admitted to the hospital with a non-ST segment elevated myocardial infarction and acute coronary syndrome. The patient was noted to have an ulceration to her right heel and ankle, and I have been asked to see her with regard to wound care. The patient denies pain associated with her foot or ankle. She has been followed at [facility]. She has undergone revascularization at [place] sometime in the recent past and has been hopeful that the ulcerations have been improving. She denies pain associated with them. PAST MEDICAL HISTORY: Positive for history of acute coronary syndrome, cardiogenic pulmonary edema, chronic ulceration to the right heel and ankle, COPD, diabetes mellitus, obesity, hyperlipidemia and vision loss. SOCIAL HISTORY: The patient denies alcohol or tobacco use. FAMILY HISTORY: Positive for heart disease, COPD, diabetes and hypertension. MEDICATIONS: Include Cozaar, Demadex, prednisolone, aspirin, iron, ProMod, Unicomplex and vitamin C, Alphagan and Cosopt. REVIEW OF SYSTEMS: CONSTITUTIONAL: The patient denies fever, chills or weight loss. NEUROLOGICAL: The patient denies any focal weakness, numbness or tingling. EYES: The patient is legally blind. ENT: The patient denies earache, nasal drainage or sore throat. CARDIOVASCULAR: The patient denies chest pain, palpitations or diaphoresis. PULMONARY: The patient denies cough or shortness of breath. GASTROINTESTINAL: The patient denies nausea, vomiting, diarrhea or abdominal pain. ORTHOPEDIC: The patient does complain of the ulceration on her right heel and ankle. Other systems in a 14-point review of systems are negative. PHYSICAL EXAMINATION: VITAL SIGNS: At this time include pulse 76, respiratory rate of 18, blood pressure 116/55, temperature 98.2. [address] [address] CONSULTATION Name: VERONICA HUYNH Room #: 462-P [facility] IN M.R.#: [id number] Admission: 09/27/18 Attend Phys: Ranjan Kim MD Discharge: Date of : 40 Report #: [id number] GENERAL: This is a chronically ill-appearing female patient who appears to be in minimal distress. HEENT: Head normocephalic. Nose and throat clear. NECK: Supple. LUNGS: Clear. HEART: Regular rate and rhythm. ABDOMEN: Soft. Bowel sounds present. EXTREMITIES: Demonstrate 1-2+ edema. She has large ulceration on the plantar and posterior portion of the right heel. There is a mix of granulation tissue and still there is some thick moist eschar present. There is also a barrel loader and cleaner and more superficial ulceration on her right medial ankle. Distal pulses are difficult to palpate, although the skin appears to be warm and dry on both feet. LABORATORY DATA: Includes sodium 141, potassium 4.1, chloride 103, CO2 of 29, BUN 41, creatinine 2.1, alkaline phosphatase is quite elevated at 602. SGPT 147. Albumin 2.4. White blood cell count is 7.8 with a hemoglobin of 10.7. CLINICAL IMPRESSION: 1. Diabetic foot ulcerations to the right heel and ankle. 2. Peripheral arterial disease with reported percutaneous revascularization. 3. Diabetes mellitus. 4. History of congestive heart failure. 5. Coronary artery disease. RECOMMENDATIONS: At this point in time, the patient is currently being treated with topical Hydrofera Blue. No records regarding her wound care are available for my review at this time. We will continue to use Hydrofera Blue. There may need to be some debridement done of the heel, although we do not want to expose any bony or connective tissue structures if at all possible. We will continue with local care. She is likely to continue following up with her wound care physicians at [facility], although would be happy to provide care for her certainly while she is in the hospital. I appreciate being asked to see her in consultation. By: [id number] Trace Davis MD /nt
[~2018-09-27 16:00] MED LIST changes: +ASPIR 8181 MG PO; +COZAAR 25 MG TA25 M2 PO; +LOPRESSOR25 PO; +PREDNISOLONE SO10 ML OPHTHALMIC; +PROMOD946 ML PO; +UNICOMPLEX M TA1 TA1 PO; +VITAMINC500 PO
[2018-09-27 16:01] VITALS: BP 101/44
[2018-09-27 16:40] LABS: ABSOLUTE NEUTROPHILS 5.1 thou/uL (1.4-8.2); BASOPHILS 1.1 % (0.0-2.0); EOSINOPHILS 3.9 % (0.0-3.0); HEMATOCRIT 30.8 % (37.0-47.0); HEMOGLOBIN 10.2 gm/dL (12.0-15.0); LYMPHOCYTES 16.4 % (24.0-44.0); MCH 28.9 pg (26.0-34.0); MCV 87.6 fL (80.0-100.0); MONOCYTES 8.8 % (1.0-8.0); PLATELET COUNT 207 thou/uL (150-400); POLYS 69.8 % (36.0-66.0); RBC 3.52 mil/uL (4.20-5.00); RDW 15.6 % (10.5-14.5); WBC 7.3 thou/uL (4.0-11.0)
[2018-09-27 16:44] LABS: URINE CLARITY CLOUDY; URINE COLOR YELLOW
[2018-09-27 16:45] LABS: URINE BILIRUBIN NEGATIVE (Negative); URINE BLOOD 1+ (Negative); URINE GLUCOSE-RANDOM* NEGATIVE (Negative); URINE KETONES NEGATIVE (Negative); URINE LEUKOCYTES-REFLEX 3+ (Negative); URINE NITRITE-REFLEX NEGATIVE (Negative); URINE PROTEIN (DIPSTICK) 1+ (Negative); URINE UROBILINOGEN 0.2 E.U./dl (0.2-1.0)
[2018-09-27 16:50] LABS: ANION GAP 7 mmol/L (7-16); BUN 46 mg/dL (7-18); CHLORIDE 100 mmol/L (98-107); CO2 32 mmol/L (21-32); CREATININE 2.2 mg/dL (0.6-1.0); GLUCOSE 306 mg/dL (74-106); SODIUM 139 mmol/L (136-145)
[2018-09-27 16:59] LABS: ALBUMIN 2.5 g/dL (3.4-5.0); SGOT 118 U/L (15-37); SGPT 169 U/L (30-65); TOTAL BILIRUBIN 0.9 mg/dL (<0.1-1.0); TOTAL PROTEIN 7.3 g/dL (6.4-8.2); TROPONIN-I <0.06 ng/mL (<0.06)
[2018-09-27 17:05] LABS: BACTERIA-REFLEX >30 Many /HPF (None Seen); CASTS None Seen /LPF (None Seen); CRYSTALS None Seen /LPF (None Seen); SQUAMOUS 0-3 Few /LPF (0-3); URINE WBC-REFLEX >25 Many /HPF (0-5)
[2018-09-27 17:06] LABS: URINE RBC 0-2 Rare /HPF (0-2)
[2018-09-27 18:21] VITALS: BP 95/35
--- NOTE | 2018-09-27 18:28 | NUR ---
ADMITTING DOCTOR AT BEDSIDE FOR INITIAL EVAL
[2018-09-27 18:46] VITALS: BP 121/37
[2018-09-27 19:02] VITALS: BP 107/48
[2018-09-28 02:06] LABS: HAV IgM AB (ANTI-HAV IgM) Negative (Negative); HEPATITIS B SURFACE AG Negative (Negative); HEPATITIS C VIRUS AB 0.3 (0.0-0.9)
[2018-09-28 03:43] VITALS: BP 126/54
[2018-09-28 05:42] LABS: ABSOLUTE NEUTROPHILS 5.7 thou/uL (1.4-8.2); BASOPHILS 0.9 % (0.0-2.0); EOSINOPHILS 4.6 % (0.0-3.0); HEMATOCRIT 33.1 % (37.0-47.0); HEMOGLOBIN 10.7 gm/dL (12.0-15.0); MCH 28.1 pg (26.0-34.0); MCHC 32.2 g/dL (28.0-37.0); MCV 87.2 fL (80.0-100.0); MONOCYTES 9.6 % (1.0-8.0); PLATELET COUNT 216 thou/uL (150-400); POLYS 72.9 % (36.0-66.0); RDW 15.8 % (10.5-14.5); WBC 7.8 thou/uL (4.0-11.0)
[2018-09-28 05:49] LABS: ALBUMIN 2.4 g/dL (3.4-5.0); CALCIUM 8.7 mg/dL (8.5-10.1); CREATININE 2.1 mg/dL (0.6-1.0); MAGNESIUM 1.8 mg/dL (1.8-2.4); POTASSIUM 4.1 mmol/L (3.5-5.1); TOTAL BILIRUBIN 0.8 mg/dL (<0.1-1.0); TOTAL PROTEIN 6.6 g/dL (6.4-8.2)
--- NOTE | 2018-09-28 07:31 | NUR ---
admit pt admitted to room 462 for right diabetic foot ulcer admission complete, iv antibiotics given as ordered continue poc.
[2018-09-28 07:46] VITALS: BP 119/56
[2018-09-28 10:32] LABS: % SATURATION 29 % (20-39); IRON 72 ug/dL (50-170); TIBC 250 ug/dL (250-450)
--- NOTE | 2018-09-28 14:01 | NUR ---
ASSUMED CARE OF PT AROUND 1145 FROM DEPARTING NURSE, PT'S A&0X4, LATER WHEN ADM IV ABX, VANCOMYCIN HANGING, NOT RUNNING AND BOTH IV'S INACTIVE W/BLOOD SEEPING AROUND THE LEFT HAND. LET HER KNOW WE'D GET ANOTHER STARTED AND GET CAUGHT UP ON HER ABX. SHE'S BEING REAL PT.
--- NOTE | 2018-09-28 14:57 | NUR ---
PT ADMITTED RELATED TO DIABETIC FOOT ULCER, WEAKNESS. CM REVIEWED CHART AND SPOKE [facility] CARE TEAM. CM MET WITH PT AT BEDSIDE THIS DAY. PT IS A&O X4. CM ROLE INTRODUCED. PT INDICATED SHE LIVES IN A HOUSE WITH HER DTR AND HER CHILDREN WITH 2 STEPS TO ENTER AND 8 STEPS INSIDE. PT INDICATED SHE HAD USED A WHEELCHAIR IN THE HOME AND HADN'T BEEN AMBULATING ADMIN SECRETARY DUE TO FOOT WOUNDS SHE IS NWB. PT INDICATED SHE NEEDED HELP IN AND OUT OF THE HOME AND THAT SHE NEEDED ASSISTANCE WITH TRANSFERS. PT INDICATED SHE GOES TO [facility] FOR PT WOUND TREATMENT. PT INDICATED HE DTR FRANCHESCA IS HER MEDICAL DPOA. CM CALLED AND LEFT A FOR FRANCHESCA. PT INDICATED SHE MAY BE INTERESTED IN A HOSPITAL BE FOR HOME US. PT ANTICIPATES RETURNING HOME ONCE MEDICALLY STABLE. CM TO FOLLOW INDICATED WITH DC PLANIING.
--- NOTE | 2018-09-28 15:11 | EKG ---
[address] [address] ELECTROCARDIOGRAM REPORT Name: VERONICA HUYNH Room #: 462-P ADM IN M.R.#: [id number] Admission: 09/27/18 Attend Phys: Ranjan Kim MD Discharge: Date of : 40 Report #: [id number] THIS REPORT FOR: //name// [facility] ED Test Date: 2018-09-27 Test Time: 16:07:16 Pat Name: VERONICA HUYNH Department: Room: [facility] Gender: F Upsetting Machine Operator: WG : 1940 Requested By: Gricelda Foss Order Number: [id number] MD: Alfredo Stovall Measurements Intervals [place] Rate: 78 P: 93 HI: 223 QRS: -30 QRSD: 144 T: 145 QT: 430 QTc: 490 Interpretive Statements Sinus rhythm Prolonged HI interval Left bundle branch block Compared to ECG 03/29/2018 09:37:11 First degree AV block now present Electronically Signed On 09-28-2018 15:11:14 WAGON DRIVER SALESPERSON by Alfredo Stovall [email or web address] <ELECTRONICALLY SIGNED> By: Alfredo Stovall MD 09/28/18 1511 1607 1607 Alfredo Stovall MD /EPI
--- NOTE | 2018-09-28 16:45 | NUR ---
WOUND CONSULT: PT. WAS SEEN TODAY BY DR. PATEL AND MYSELF. PT. HAS DIABETIC ULCERS TO HER RIGHT HEEL AND RIGHT MEDIAL ANKLE. PT. HAS BEEN GOING TO [facility] FOR WOUND CARE. RECOMMENDATIONS: WOUND CARE TO BOTH SITES: GENTLY CLEANSE AREA WITH WOUND CLEANSER OR NORMAL SALINE, APPLY HYDROFERA BLUE TO WOUND BED, COVER WITH ABD, WRAP WITH KERLIX, SECURE WITH TAPE, COMPLETE CARES EVERY OTHER DAY AND PRN DUE TO SOILAGE. PT. AND STAFF NURSE WERE INSTRUCTED ON PLAN OF CARE.
--- NOTE | 2018-09-28 17:53 | NUR ---
CALLED PT'S DAUGHTER FOR MED REC, CONTACTED SAMUEL TO LET HER KNOW DONE
[2018-09-28 18:08] LABS: IgG 1353 mg/dL (700-1600)
--- NOTE | 2018-09-28 18:42 | NUR ---
FAMILY CALLED, ZAY, TO SAY THE FAMILY WANTED HER AT [facility] ORIGINALLY THIS IS WHERE SHE HAS APPTS AND TO KEEP CONTINUITY OF WOUND CARE. ASSURED HER OF OUR WOUND CARE TEAM AND DAY NURSE REPORTED OFF SW WORKING ON THIS AND RECORDS HAVE BEEN SENT FOR. LET HER KNOW I'D PASS THIS INFORMATION ON
[2018-09-28 19:26] VITALS: BP 116/55
[2018-09-29 04:25] VITALS: BP 110/45
[2018-09-29 06:39] LABS: ALBUMIN 2.1 g/dL (3.4-5.0); CALCIUM 8.7 mg/dL (8.5-10.1); CREATININE 1.6 mg/dL (0.6-1.0); POTASSIUM 3.9 mmol/L (3.5-5.1)
--- NOTE | 2018-09-29 07:22 | NUR ---
DR BECKER SAW PATIENT, REMOVED DRESSING WHICH I THEN CHANGED. BILAT HEEL LIFT BOOTS PLACED. USES BEDPAN WITH OCCASIONAL BLADDER INCONTINENCE. TYLENOL EFFECTIVE FOR RIGHT HEEL, ANKLE WOUND PAIN. MRSA SWAB SENT TO LAB. NO BM THIS SHIFT, UNABLE TO OBTAIN OB STOOL SPECIMEN.
[2018-09-29 07:48] VITALS: BP 122/53
[2018-09-29 08:54] LABS: HEMATOCRIT 29.6 % (37.0-47.0); HEMOGLOBIN 9.8 gm/dL (12.0-15.0); MCH 28.9 pg (26.0-34.0); MCHC 33.1 g/dL (28.0-37.0); MCV 87.5 fL (80.0-100.0); RBC 3.38 mil/uL (4.20-5.00); RDW 15.9 % (10.5-14.5); WBC 6.9 thou/uL (4.0-11.0)
[2018-09-29 16:06] VITALS: BP 115/55
--- NOTE | 2018-09-29 16:09 | NUR ---
SHIFT SUMMARY: ALERT AND ORIENTED AND HAS DENIED PAIN OR CONCERNS. DRESSING ON RT FOOT ULCER CHANGED PER NEW ORDER AND CONSULT FOR DR. ALEMAN IN [facility] TO SEE MONDAY. USES BEDPAN TO VOID AND SOMETIMES INCONTINENT. TOLERATING DIET W/O NAUSEA. WILL CONTINUE WITH PLAN OF CARE.
[2018-09-29 19:42] VITALS: BP 123/53
[2018-09-30 03:33] VITALS: BP 119/47
[2018-09-30 05:46] LABS: HEMATOCRIT 28.9 % (37.0-47.0); HEMOGLOBIN 9.6 gm/dL (12.0-15.0); MCHC 33.1 g/dL (28.0-37.0); MCV 87.6 fL (80.0-100.0); RBC 3.3 mil/uL (4.20-5.00); RDW 15.8 % (10.5-14.5); WBC 6.9 thou/uL (4.0-11.0)
--- NOTE | 2018-09-30 05:51 | NUR ---
ASSESSMENT: PT REMAIN ALERT AND ORIENT TIMES FOUR. C/O RIGHT HAND AT SHIFT CHANGE. IV INFILTRATED, NEW ONE WAS INITIATED. C/O HEADACHE, TYLENOL GIVEN WITH GOOD RELIEF. VSS, AFEBRILE. SR PER MONITOR. LEAGALLY BLIND, NEED ASSISTANCE WITH SETTING UP TRAY. PROFO BOOTS ON. INCONTINENT ON OCCASSIONS, ASK FOR BED BENAVIDEZ MOST OF THE TIME. SLOW PROGRESS TOWARDS DC GOALS, WILL CONTINUE TO MONITOR.
[2018-09-30 06:05] LABS: ALBUMIN 2.1 g/dL (3.4-5.0); CALCIUM 8.8 mg/dL (8.5-10.1); CREATININE 1.4 mg/dL (0.6-1.0); MAGNESIUM 1.9 mg/dL (1.8-2.4); PHOSPHORUS 2.9 mg/dL (2.5-4.9); POTASSIUM 4.2 mmol/L (3.5-5.1)
[2018-09-30 08:28] VITALS: BP 117/55
[2018-09-30 08:35] LABS: ALBUMIN 2.2 g/dL (3.4-5.0); DIRECT BILIRUBIN 0.4 mg/dL (<0.1-0.3); TOTAL BILIRUBIN 0.7 mg/dL (<0.1-1.0); TOTAL PROTEIN 6.7 g/dL (6.4-8.2)
[2018-09-30 11:10] LABS: MITOCHONDRIAL ANTIBODY 12.2 Units (0.0-20.0)
--- NOTE | 2018-09-30 12:41 | NUR ---
TOWARDS POC PT A/O X4. VSS, AFEBRILE. DENIES PAIN. WOUND CARE AND DRESSING DONE. NO CONCERNS VOICED. WILL CONTINUE TO MONITOR.
[2018-09-30 14:35] VITALS: BP 125/59
[2018-09-30 20:38] VITALS: BP 150/73
--- NOTE | 2018-10-01 01:28 | NUR ---
ASSUMED CARE OF PT AT 1900. PT A&OX4. Q2H TURN. DPOA STATES SHE DOES NOT WANT PT TO UNDERGO ANY PROCEDURES AND REFUSES THE MRI SCHEDULED IN THE AM. FAMILY WANTS PT TO BE DISCHARGED IN THE AM AND GO HOME WHERE HER WOUND DOCTOR CAN FOLLOW-UP WITH HER. WILL REPORT THIS TO AM NURSE. PT REQUESTS TYLENOL FOR LE PAIN. MED ADMINISTERED AND PAIN RELIEF OBTAINED. FALL PRECAUTIONS IN PLACE. WILL CONTINUE TO MONITOR.
[2018-10-01 04:04] VITALS: BP 127/60
[2018-10-01 06:04] LABS: HEMATOCRIT 29.1 % (37.0-47.0); HEMOGLOBIN 9.4 gm/dL (12.0-15.0); MCH 28.1 pg (26.0-34.0); MCHC 32.3 g/dL (28.0-37.0); RBC 3.35 mil/uL (4.20-5.00); RDW 15.6 % (10.5-14.5); WBC 6.8 thou/uL (4.0-11.0)
[2018-10-01 06:29] LABS: CALCIUM 8.8 mg/dL (8.5-10.1); CREATININE 1.3 mg/dL (0.6-1.0); MAGNESIUM 1.9 mg/dL (1.8-2.4)
[2018-10-01 08:22] VITALS: BP 128/58
[2018-10-01 11:07] LABS: ANA INTERPRETATION Negative (Negative)
--- NOTE | 2018-10-01 11:20 | HC ---
[facility] [place] [address] CONSULTATION Name: VERONICA HUYNH Room #: 462-P ADM IN M.R.#: [id number] Admission: 09/27/18 Attend Phys: Ranjan Kim MD Discharge: Date of : 40 Report #: [id number] THIS REPORT FOR: //name// CC: Ranjan CORDOVA DATE OF SERVICE: 09/28/2018 NEPHROLOGY CONSULTATION REASON FOR CONSULTATION: Renal insufficiency. HISTORY OF PRESENT ILLNESS: The patient is well known to our service, with longstanding diabetes and ischemic cardiomyopathy, has had evaluation in the past, who did show little in the way of any structural kidney damage. She had a renal sonogram last year. She has had urinalyses that have not shown proteinuria despite her longstanding diabetes mellitus. Since last summer, she has had a right foot wound, which started in her heel, required debridement and has been slow to heal, remaining open and she is followed up and had been on long-term antibiotics with wound care at [facility]. She became progressively weak, came to the Emergency Room here, was somewhat hypotensive, had some pulmonary infiltrate and was admitted. HOME MEDICATIONS: As listed include ascorbic acid 500 mg daily, aspirin 81 mg daily, atorvastatin 40 mg daily, Symbicort inhaler, Ceftin 250 mg b.i.d., vitamin D, Plavix 75 mg daily, Advair inhaler, gabapentin 300 mg b.i.d., insulin, losartan 25 mg daily, torsemide 20 mg daily and a protein supplement. PAST MEDICAL HISTORY: She has had ischemic cardiomyopathy with very low ejection fraction of 30% or less. Has had previous coronary stenting performed, apparently had a LifeVest in place recently as well, apparently having had some arrhythmia. She also carries a diagnosis of COPD, longstanding diabetes with peripheral neuropathy and a prior history of hypertension. SOCIAL HISTORY: She is a remote smoker. No substantial alcohol. REVIEW OF SYSTEMS: GENERAL: She has been feeling weak and not feeling well. EYES: Her vision is poor. She has got glaucoma. ENT: Hearing okay, swallows okay without sores in the mouth. ENDOCRINE: Positive for the diabetes. RESPIRATORY: Somewhat easily short-winded, but fine at rest and lying relatively flat. CARDIAC: No chest pain. She has had occasional swelling in her legs. [facility] [address] [place] [address] CONSULTATION Name: VERONICA HUYNH Room #: 462-P [facility] IN ..#: [id number] Admission: 09/27/18 Attend Phys: Ranjan Kim MD Discharge: Date of : 40 Report #: [id number] NEUROLOGIC: Peripheral neuropathy, but no seizure, syncope or stroke. MUSCULOSKELETAL: She has had arthritis, particularly affecting the hands. She has been unable to walk. She has offloaded with no weightbearing since the surgery on her right heel 4 months ago. PHYSICAL EXAMINATION: GENERAL: This is a pleasant, somewhat chronically ill-appearing woman, in no acute distress, lying reasonably flat without any shortness of air. SKIN: Unremarkable. SKELETAL: Well developed, well nourished. HEENT: Extraocular movements are full. Vision is intact. Hearing is intact. Mucous membranes are slightly dry. NECK: Supple. The neck veins are not distended. CHEST: Shows diminished breath sounds at the bases. HEART: Regular. ABDOMEN: Soft and nontender. EXTREMITIES: Show a boot and dressing on the right foot. NEUROLOGIC: Shows some numbness in the left foot. LABORATORY DATA: Hemoglobin is 10.7, platelets 216. Sodium is 141, potassium 4.1, chloride 103, bicarbonate 29, creatinine 2.1, BUN 41. ASSESSMENT AND PLAN: 1. Chronic kidney disease. Creatinine elevated both chronically and a little bit acutely. She has been diagnosed in the past with cardiorenal. She has had little in the way of proteinuria and renal sonogram that was quite benign appearing. Currently, she is lying flat relatively comfortable. She has got Gram-positive cocci in her blood, likely Staphylococcus from her wound on the right foot. This is being appropriately treated. She is not currently on any diuretics and I would certainly agree with that at the current time. We will follow her labs. We will follow her fluid volume status and see how she does. 2. Ischemic cardiomyopathy. 3. Chronic right foot wound. 4. Diabetes mellitus with peripheral neuropathy. 5. Peripheral arterial disease, status post stenting to the right lower extremity. <ELECTRONICALLY SIGNED> By: Fernando Singh MD 10/01/18 1120 1300 0142 Fernando Singh MD /nt
[2018-10-01 12:08] LABS: CERULOPLASMIN 37.1 mg/dL (19.0-39.0)
--- NOTE | 2018-10-01 12:23 | NUR ---
CARE TEAM NOTIFIED CM THAT PT AND PT'S DTR FRANCHESCA INDICATED THAT THEY WANT PT TRANSFERED TO [facility] FOR CONTINUED CARE. CM CALLED TRANSFER CENTER AT AND SPOKE WITH LOULOU SHE INDICATED THAT [facility] HAS NO BEDS AND THEIR ED IS CLOSED BUT THAT CM COULD FAX OVER FACE SHEET AND COPY OF INSURANCE CARD AND THEY WOULD WORK ON GETTING PT ON WAITING LIST. CM TO FAX DOCUMENTATION TO . CM TO FOLLOW INDICATED WITH DC PLANNIG. CM REQUESTED CHART COPY BE MADE.
--- NOTE | 2018-10-01 13:07 | HC ---
[facility] [place] [address] CONSULTATION Name: VERONICA HUYNH Room #: 462-P ADM IN M.R.#: [id number] Admission: 09/27/18 Attend Phys: Ranjan Kim MD Discharge: Date of : 40 Report #: [id number] THIS REPORT FOR: //name// CC: Ranjan CORDOVA DATE OF SERVICE: 09/28/2018 REASON FOR CONSULTATION: Evaluate Gram-positive cocci, bacteremia and urinary tract infection. HISTORY OF PRESENT ILLNESS: The patient was a 78-year-old with underlying ischemic cardiomyopathy, peripheral vascular disease, chronic kidney disease, congestive heart failure. She has been in and out of the hospital multiple times throughout the city. She has had a chronic wound to her left heel with suspected underlying osteomyelitis. She presented with progressive weakness. The patient was a poor historian. Denied any fever, chills or sweats. Has had no chest pain or palpitations. Reports intermittent cough with no sputum production. No headaches or pharyngitis symptoms. No change in her right foot. She has been offloading this and been wearing a protective boot. She is incontinent of urine without dysuria. No back or flank pain. No nausea, vomiting or diarrhea. REVIEW OF SYSTEMS: A 10-point review of systems other than what is noted above was negative. ALLERGIES: LISINOPRIL. MEDICATIONS: As noted on her MAR including vancomycin and Zosyn. PAST MEDICAL HISTORY: Hypertension, ischemic cardiomyopathy, chronic kidney disease, lower extremity edema, orthostatic hypotension, hyperlipidemia, right foot chronic wound, peripheral vascular disease, diabetes, vision loss with legally blind, COPD. FAMILY HISTORY: Noncontributory. SOCIAL HISTORY: Lives with her daughter. Nonsmoker, no significant alcohol intake. PHYSICAL EXAMINATION: GENERAL: She was alert and cooperative and pleasant. Appeared her stated age. She is in no distress. She was conversant. VITAL SIGNS: Afebrile and hemodynamically stable. She was lying in bed. HEENT: Eyes: Legally blind. She was able to focus on objects. No conjunctivitis or scleral icterus. Mouth without mucositis. [facility] [address] [place] [address] CONSULTATION Name: VERONICA HUYNH Room #: 462-P [facility] IN [facility].#: [id number] Admission: 09/27/18 Attend Phys: Ranjan Kim MD Discharge: Date of : 40 Report #: [id number] NECK: Supple with no thyromegaly, mass or JVD. LUNGS: Clear. HEART: Regular, without murmur, gallop or rub. ABDOMEN: Soft, obese, and nontender. No hepatosplenomegaly or mass appreciated. GENITOURINARY: She was incontinent of urine. External genitalia otherwise unremarkable. Perianal examination unremarkable. RECTAL: Not performed. EXTREMITIES: Right foot with multiple wounds, mostly over the heel with some eschar. Medial ankle wound also present with mild surrounding erythema. No edema. Decreased pulses in the foot. Unable to palpate posterior tibial or dorsalis pedis. She also had a callus and discoloration of the fourth toe. Sensation to touch was intact. She was able to move both lower extremities. Cranial nerves intact other than her vision changes. Upper extremity strength was normal. Mood normal. No other skin rashes identified. No palpable adenopathy. LABORATORY STUDIES: Urinalysis was positive for wbc's, bacteria. Urine cultures pending. Blood culture, gram-positive cocci from 2 cultures 09/27/2018, procalcitonin 0.5, IgG 1350. Sedimentation rate 106. Hemoglobin 10.7, platelet count 216,000, white count 7.8 with 72% neutrophils, 12% lymphs. Lactate 1.9, AST 87, ALT 147. Alkaline phosphatase 602, bilirubin 0.8. Sodium 141, potassium 4.1, bicarbonate 29, creatinine 2.0. Ultrasound of the abdomen negative with no gallbladder changes. CT of the abdomen and pelvis, diverticular changes, nothing acute. Chest x-ray, vascular congestion with predominant right lower lobe infiltrate, small effusion. IMPRESSION: 1. 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 2. Gram-positive cocci bacteremia, source yet indeterminate whether it is related to her foot. Less likely urinary tract with gram-positive cocci. So far no evidence of cholangitis. She does have liver abnormalities, however. 3. Congestive heart failure. 4. Acute on chronic kidney disease. 5. Diabetes. RECOMMENDATION: We will continue with IV antibiotic therapy, awaiting further culture results. Check arterial studies, her right lower extremity and x-ray. Follow up chest x-ray in the next 48 hours to assess treatment of congestive [facility] [address] [place] [address] CONSULTATION Name: VERONICA HUYNH Room #: 462-P ADM IN Raf.#: [id number] Admission: 09/27/18 Attend Phys: Ranjan Kim MD Discharge: Date of : 40 Report #: [id number] heart failure. Follow renal function. Monitor vancomycin level and adjust accordingly. <ELECTRONICALLY SIGNED> By: Matt Ramirez MD 10/01/18 1307 2218 [id number] Matt Ramirez MD /nt
--- NOTE | 2018-10-01 13:45 | 2DMMODE ---
[place] [address] [facility] [place] [address] 2 D/M-MODE ECHOCARDIOGRAM Name: VERONICA HUYNH Room #: 462-P ADM IN .R.#: [id number] Admission: 09/27/18 Attend Phys: Ranjan Kim, Discharge: Date of : 40 Date of Service: 10/01/18 1345 Report #: [id number] THIS REPORT FOR: //name// APPROVED REPORT Study performed: 10/01/2018 11:54:59 EXAM: Comprehensive 2D, Doppler, and color-flow Echocardiogram Patient Location: Bedside Room #: 462 Status: routine BSA: 1.82 HR: 70 bpm BP: 128/58 mmHg Rhythm: NSR Other Information Study Quality: Adequate Indications Rule out vegetation, bacteremia. Hx: ISCM, CHF, life vest, COPD. (EF 30-35% 2017) 2D Dimensions RVDd: 32.90 mm IVSd: 14.31 (7-11mm) LVOT Diam: 19.11 (18-24mm) LVDd: 46.37 mm PWd: 12.60 (7-11mm) Ascending Ao: 26.51 (22-36mm) LVDs: 33.13 (25-40mm) Aortic Root: 34.14 mm Volumes Left Atrial Volume (Systole) Single Plane 4CH: 33.50 mL Single Plane 2CH: 51.60 mL LA ESV Index: 26.00 mL/m2 Aortic Valve AoV Peak Rustam.: 1.40 m/s AO Peak Gr.: 7.81 mmHg LVOT Max P.22 mmHg LVOT Max V: 0.90 m/s SHERICE Vmax: 1.84 cm2 Mitral Valve E/A Ratio: 1.1 MV Decel. Time: 161.90 ms [facility] [address] 2 D/M-MODE ECHOCARDIOGRAM Name: VERONICA HUYNH Room #: 462-P [facility] IN ..#: [id number] Admission: 09/27/18 Attend Phys: Ranjan Kim, Discharge: Date of : 40 Date of Service: 10/01/18 1345 Report #: [id number] MV E Max Rustam.: 1.19 m/s MV A Rustam.: 1.05 m/s MV PHT: 46.95 ms IVRT: 86.51 ms Pulmonary Valve PV Peak Rustam.: 1.04 m/s PV Peak Gr.: 4.36 mmHg Pulmonary Vein P Vein S: 0.44 m/s P Vein D: 0.38 m/s P Vein S/D Ratio: 1.16 Tricuspid Valve TR Peak Rustam.: 2.24 m/s RAP Estimate: 5.00 mmHg TR Peak Gr.: 20.11 mmHg PA Pressure: 25.00 mmHg Left Ventricle The left ventricle is normal size. Mild concentric left ventricular hypertrophy. Left ventricular systolic function is moderately decreased. Discordant septal motion. Inferior wall hypokinesis LVEF 35-40%. Moderate diastolic dysfunction is present (pseudonormal filling). Right Ventricle The right ventricle is normal size. The right ventricular systolic function is normal. Atria The left atrium size is normal. The right atrium size is normal. Aortic Valve Aortic valve is trileaflet, mildly calcified. No aortic regurgitation is present. There is no aortic valvular stenosis. Mitral Valve Mild mitral annular calcification. Mild mitral regurgitation. No evidence of mitral valve stenosis. Tricuspid Valve The tricuspid valve is normal in structure. Trace to mild tricuspid regurgitation. Estimated PAP is 25mmHg. Pulmonic Valve [address] [place] [address] 2 D/M-MODE ECHOCARDIOGRAM Name: VERONICA HUYNH Room #: 462-P [facility] IN [facility]#: [id number] Admission: 09/27/18 Attend Phys: Ranjan Kim, Discharge: Date of : 40 Date of Service: 10/01/18 1345 Report #: [id number] The pulmonary valve is normal in structure. Trace pulmonic regurgitation. Great Vessels The aortic root is normal in size. The ascending aorta is normal in size. IVC is normal in size and collapses >50% with inspiration. Pericardium There is no pericardial effusion. <Conclusion> Left ventricular systolic function is moderately decreased. Discordant septal motion. Inferior wall hypokinesis LVEF 35-40%. Moderate diastolic dysfunction is present (pseudonormal filling). Aortic valve is trileaflet, mildly calcified. No aortic regurgitation or stenosis Mild mitral annular calcification. Mild mitral regurgitation. Trace to mild tricuspid regurgitation. Estimated pulmonary artery pressure of 25mmHg. There is no pericardial effusion. <ELECTRONICALLY SIGNED> By: Calderon Jarvis MD, FACC 10/01/18 1345 1345 1345 Calderon Jarvis MD, FACC /INF
[2018-10-01 17:40] VITALS: BP 137/58
[2018-10-01 20:15] VITALS: BP 158/74
[2018-10-02 04:00] VITALS: BP 143/70
[2018-10-02 04:22] LABS: HEMATOCRIT 29.2 % (37.0-47.0); HEMOGLOBIN 9.9 gm/dL (12.0-15.0); MCH 29.3 pg (26.0-34.0); MCHC 33.7 g/dL (28.0-37.0); MCV 86.9 fL (80.0-100.0); RBC 3.36 mil/uL (4.20-5.00); RDW 15.7 % (10.5-14.5); WBC 8.2 thou/uL (4.0-11.0)
[2018-10-02 05:01] LABS: CREATININE 1.2 mg/dL (0.6-1.0); POTASSIUM 4.5 mmol/L (3.5-5.1)
[2018-10-02 07:55] VITALS: BP 110/56
[2018-10-02 13:50] VITALS: BP 112/50
--- NOTE | 2018-10-02 17:22 | NUR ---
PT STABLE THROUGHOUT SHIFT. DRESSINGS CHANGED. PT TRANSFERRED TO [facility] PER FAMILY REQUEST. PT LEFT UNIT VIA STRETCHER VAN. REPORT CALLED TO
== END 2018-10-02 17:30 | disposition short-term general hospital (02) | DRG 871 ==
LOC: ER 16:00 → EROBS 17:33 → 4W 17:33 → 4E 18:22 → 4W 18:43
PROVIDERS: Internal Medicine Nephrology; Nurse Practitioner; Physician Assistant; ADMIT Internal Medicine
DX: A41.9 Sepsis, unspecified organism (principal); L89.513 Pressure ulcer of right ankle, stage 3; E43 Unspecified severe protein-calorie malnutrition; N17.9 Acute kidney failure, unspecified; N39.0 Urinary tract infection, site not specified; Z68.43 Body mass index [BMI] 50.0-59.9, adult; I13.0 Hypertensive heart and chronic kidney disease with heart failure and stage 1 through stage 4 chronic kidney disease, or unspecified chronic kidney disease; I50.40 Unspecified combined systolic (congestive) and diastolic (congestive) heart failure; I48.91 Unspecified atrial fibrillation; E11.42 Type 2 diabetes mellitus with diabetic polyneuropathy; L89.610 Pressure ulcer of right heel, unstageable; N18.9 Chronic kidney disease, unspecified; E11.22 Type 2 diabetes mellitus with diabetic chronic kidney disease; K76.9 Liver disease, unspecified; E11.51 Type 2 diabetes mellitus with diabetic peripheral angiopathy without gangrene; M89.9 Disorder of bone, unspecified; I25.10 Atherosclerotic heart disease of native coronary artery without angina pectoris; B96.1 Klebsiella pneumoniae [K. pneumoniae] as the cause of diseases classified elsewhere; E78.5 Hyperlipidemia, unspecified; I95.9 Hypotension, unspecified; Z79.899 Other long term (current) drug therapy; I25.5 Ischemic cardiomyopathy; E66.9 Obesity, unspecified; E11.621 Type 2 diabetes mellitus with foot ulcer; J44.9 Chronic obstructive pulmonary disease, unspecified; H54.8 Legal blindness, as defined in USA; Z79.4 Long term (current) use of insulin; Z79.82 Long term (current) use of aspirin; Z88.0 Allergy status to penicillin; Z95.5 Presence of coronary angioplasty implant and graft; Z82.49 Family history of ischemic heart disease and other diseases of the circulatory system; Z83.3 Family history of diabetes mellitus; Z83.6 Family history of other diseases of the respiratory system
CPT/HCPCS: 10045